=== PATIENT | female | born 1970 | race African-American/Black ===

== ENCOUNTER 2017-11-09 07:08 | Emergency (ER) | payer SELFPAY ==
[~2017-11-09] VITALS: Ht 167.6 cm; Wt 56.7 kg
[2017-11-09 07:28] VITALS: BP 146/89
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
[2017-11-09 08:23] VITALS: BP 146/89
== END 2017-11-09 08:23 | disposition home or self-care (01) ==
LOC: EDBD 07:08 → EMR 07:30
DX: Z04.41 Encounter for examination and observation following alleged adult rape (principal); I10 Essential (primary) hypertension; E11.9 Type 2 diabetes mellitus without complications
CPT/HCPCS: 99283